=== PATIENT | female | born 1965 ===

== ENCOUNTER 2022-05-12 07:41 | Day surgery (SDC) | payer OTHER | END 2022-05-12 12:35 | disposition home or self-care (01) | LOC: AMB-ENDOS 07:41 | PROVIDERS: ATTEND Colon & Rectal Surgery | DX: D12.2 Benign neoplasm of ascending colon (principal); Z20.822 Contact with and (suspected) exposure to COVID-19; K57.30 Diverticulosis of large intestine without perforation or abscess without bleeding; K64.4 Residual hemorrhoidal skin tags; E03.9 Hypothyroidism, unspecified ==